=== PATIENT | male | born 1970 | race African-American/Black ===

== ENCOUNTER 2020-04-09 20:26 | Inpatient (IN) | payer BC, OTHER ==
[2020-04-09 20:37] VITALS: BMI 33.8
[2020-04-09] MEDS ORDERED: ACETAMINOPHEN 1000 MG/100 ML VIAL (NON FORMULARY) IVPB ONE (21:39)
[2020-04-09] MEDS ORDERED: SODIUM CHLORIDE 1,000 ML IV SCH (21:45)
[2020-04-09] MEDS ORDERED: ACETAMINOPHEN INJECTION 100 ML IVPB ONE (21:54)
[2020-04-09] MEDS ORDERED: ONDANSETRON 4 MG/2 ML VIAL IVPUSH ONE (22:21)
[2020-04-09] MEDS ORDERED: KETOROLAC TROMETHAMINE 15 MG/ML VIAL IVPUSH ONE (22:39)
[2020-04-09] MEDS ORDERED: KETOROLAC TROMETHAMINE 15 MG/ML VIAL ONE ×2 (22:42→22:45)
[2020-04-09] MEDS ORDERED: ONDANSETRON 4 MG/2 ML VIAL ONE (22:42)
[2020-04-09 22:50] LABS: BASO % 1.2 % (0-2.0); EOS % 6.5 % (0-4.5); HEMATOCRIT 38.1 % (35.4-49); HEMOGLOBIN 12.4 GM/dL (11.7-16.9); LYMPH % 33.9 % (8-40); MCHC 32.6 g/dl (32.0-35.9); MEAN CELL VOLUME 79.8 fl (80-96); MEAN PLT VOLUME 9.2 fl (7.5-11.1); MONO % 8.1 % (3.8-10.2); NEUT % 50.3 % (42.8-82.8); PLATELET COUNT 306 K/MM3 (134-434); RBC 4.78 M/mm3 (4.00-5.60)
[2020-04-09 23:00] LABS: INR 1.25 (0.83-1.09); PROTHROMBIN TIME (PATIENT) 15.3 SEC (9.7-13.0)
[2020-04-09 23:03] LABS: ACTIVATED PTT 31.3 SECONDS (25.2-36.5)
[2020-04-09 23:04] LABS: URINE APPEARANCE CLEAR; URINE BILIRUBIN NEGATIVE (NEGATIVE); URINE COLOR YELLOW; URINE GLUCOSE (UA) NEGATIVE (NEGATIVE); URINE KETONE TRACE (NEGATIVE); URINE LEUK ESTERASE NEGATIVE (NEGATIVE); URINE NITRITE NEGATIVE (NEGATIVE); URINE PROTEIN TRACE (NEGATIVE); URINE UROBILINOGEN 0.2 mg/dL (0.2-1.0)
[2020-04-09 23:19] LABS: POTASSIUM 4.5 mmol/L (3.5-5.1)
[2020-04-09 23:22] LABS: CALCIUM 9.1 mg/dL (8.5-10.1)
[2020-04-09 23:23] LABS: ALBUMIN 3.8 g/dl (3.4-5.0); BLOOD UREA NITROGEN 20.1 mg/dL (7-18)
[2020-04-09 23:26] LABS: CREATININE 1.9 mg/dL (0.55-1.3)
[2020-04-09 23:27] LABS: BILIRUBIN,TOTAL 0.2 mg/dL (0.2-1); TOT PROT 7.9 g/dl (6.4-8.2)
[2020-04-10] MEDS ORDERED: TAMSULOSIN HCL 0.4 MG CAP PO ONE (00:14)
[2020-04-10] MEDS ORDERED: SODIUM CHLORIDE 0.9% 500 ML INFUS.BAG IV ONE (00:14)
[2020-04-10] MEDS ORDERED: TAMSULOSIN HCL 0.4 MG CAP ONE ×2 (00:25→09:39)
[2020-04-10] MEDS ORDERED: KETOROLAC TROMETHAMINE 15 MG/ML VIAL IVPUSH PRN (01:13)
[2020-04-10] MEDS ORDERED: MORPHINE SULFATE 2 MG/ML VIAL IM PRN (01:30)
[2020-04-10 06:54] LABS: BASO % 0.9 % (0-2.0); EOS % 7.2 % (0-4.5); HEMATOCRIT 38.3 % (35.4-49); HEMOGLOBIN 12.3 GM/dL (11.7-16.9); LYMPH % 37.7 % (8-40); MCH 25.8 pg (25.7-33.7); MEAN CELL VOLUME 80.7 fl (80-96); MEAN PLT VOLUME 9.1 fl (7.5-11.1); MONO % 7.7 % (3.8-10.2); NEUT % 46.5 % (42.8-82.8); PLATELET COUNT 263 K/MM3 (134-434); RBC 4.75 M/mm3 (4.00-5.60)
[2020-04-10 07:05] LABS: INR 1.22 (0.83-1.09); PROTHROMBIN TIME (PATIENT) 14.9 SEC (9.7-13.0)
[2020-04-10 07:06] LABS: ACTIVATED PTT 32.7 SECONDS (25.2-36.5)
[2020-04-10 07:19] LABS: POTASSIUM 4.5 mmol/L (3.5-5.1)
[2020-04-10 07:25] LABS: CALCIUM 8.4 mg/dL (8.5-10.1)
[2020-04-10 07:26] LABS: ALBUMIN 3.4 g/dl (3.4-5.0); BLOOD UREA NITROGEN 18.4 mg/dL (7-18); MAGNESIUM 2.5 mg/dL (1.8-2.4)
[2020-04-10 07:28] LABS: CREATININE 1.8 mg/dL (0.55-1.3); PHOSPHOROUS 3.6 mg/dL (2.5-4.9)
[2020-04-10 07:29] LABS: BILIRUBIN,TOTAL 0.2 mg/dL (0.2-1); TOT PROT 7.1 g/dl (6.4-8.2)
[2020-04-10] MEDS: TAMSULOSIN HCL 0.4 MG CAP PO SCH (09:40)
[2020-04-10] MEDS ORDERED: amLODIPine BESYLATE 5 MG TABLET (FP) PO SCH (12:15)
[2020-04-10] MEDS: SODIUM CHLORIDE 1,000 ML IV SCH (14:15)
[2020-04-10] MEDS ORDERED: HEPARIN NA (PORCINE) 5,000 UNITS/ML 1ML VIAL SQ SCH (22:00)
[2020-04-10] MEDS ORDERED: amLODIPine BESYLATE 5 MG TABLET (FP) PO ONE (22:29)
[2020-04-11] MEDS: SODIUM CHLORIDE 1,000 ML IV SCH ×2 (05:48→14:55)
[2020-04-11] MEDS ORDERED: amLODIPine BESYLATE 10 MG TABLET (FP) PO ONE (07:30)
[2020-04-11 07:31] LABS: HEMOGLOBIN 13.5 GM/dL (11.7-16.9); MCH 26.3 pg (25.7-33.7); MEAN CELL VOLUME 79.9 fl (80-96); MEAN PLT VOLUME 8.9 fl (7.5-11.1); PLATELET COUNT 331 K/MM3 (134-434); RBC 5.14 M/mm3 (4.00-5.60); WHITE BLOOD COUNT 4.2 K/mm3 (4.0-10.0)
[2020-04-11 08:00] LABS: POTASSIUM 4.5 mmol/L (3.5-5.1)
[2020-04-11 08:09] LABS: CALCIUM 9.2 mg/dL (8.5-10.1)
[2020-04-11 08:10] LABS: BLOOD UREA NITROGEN 14.4 mg/dL (7-18)
[2020-04-11 08:13] LABS: CREATININE 1.3 mg/dL (0.55-1.3)
[2020-04-11] MEDS: TAMSULOSIN HCL 0.4 MG CAP PO SCH (09:01)
[2020-04-11] MEDS ORDERED: DEXTROSE 5%-0.45% SALINE 1,000 ML IV SCH (14:45)
[2020-04-11 16:11] VITALS: BP 157/110; PULSE 76; TEMP 98.4
[2020-04-11] MEDS ORDERED: CHLORTHALIDONE 25 MG TABLET PO ONE (16:18)
[2020-04-12] MEDS ORDERED: amLODIPine BESYLATE 5 MG TABLET (FP) PO SCH (10:00)
== END 2020-04-11 18:21 | disposition home or self-care (01) | DRG 694 ==
LOC: JER 20:26 → JERBED 04-10 00:14 → J7W 04-10 10:32
PROVIDERS: ADMIT Internal Medicine; ATTEND Internal Medicine
DX: N13.2 Hydronephrosis with renal and ureteral calculous obstruction (principal); J98.11 Atelectasis; I10 Essential (primary) hypertension; N17.9 Acute kidney failure, unspecified; E66.9 Obesity, unspecified; Z68.33 Body mass index [BMI] 33.0-33.9, adult; I16.0 Hypertensive urgency; R94.31 Abnormal electrocardiogram [ECG] [EKG]
CPT/HCPCS: 36415; 71045-TC-FY; 74018-TC-FY; 74176-TC; 76775-TC; 80048; 80053; 81003; 83605; 83690; 83735; 84100; 85025; 85027; 85610; 85730; 87086; 93005; 93010; 99285-25; C9803; J0131; J1644; U0003

== ENCOUNTER 2021-10-14 12:40 | Emergency (ER) | payer BC, OTHER ==
[2021-10-14 12:45] VITALS: PULSE 80; RESP 20; TEMP 98.3; BMI 34.4
[2021-10-14] MEDS ORDERED: AMOXICILLIN 500 MG CAPSULE (FP) PO ONE (13:23)
[2021-10-14] MEDS ORDERED: KETOROLAC TROMETHAMINE 30 MG/1 ML VIAL IM ONE (13:23)
[2021-10-14] MEDS ORDERED: AMOXICILLIN 250 MG CAPSULE ONE (13:25)
[2021-10-14] MEDS ORDERED: KETOROLAC TROMETHAMINE 30 MG/1 ML VIAL ONE (13:25)
[2021-10-14 13:56] VITALS: BP 158/102
== END 2021-10-14 14:05 | disposition home or self-care (01) ==
LOC: JERFT 12:40
DX: R22.0 Localized swelling, mass and lump, head (principal)
CPT/HCPCS: 99283-25

== ENCOUNTER 2021-10-14 16:47 | Emergency (ER) | payer OTHER ==
[2021-10-14 17:10] VITALS: RESP 16; BMI 34.4
[2021-10-14] MEDS ORDERED: ASPIRIN 81 MG CHEWABLE TABLETS PO ONE (18:06)
[2021-10-14] MEDS ORDERED: HYDROCHLOROTHIAZIDE 12.5 MG CAPSULE (FP) PO ONE (18:08)
[2021-10-14] MEDS ORDERED: HYDROCHLOROTHIAZIDE 25 MG TABLET (FP) ONE (18:29)
[2021-10-14] MEDS ORDERED: ASPIRIN 81 MG CHEWABLE TABLETS ONE (18:29)
[2021-10-14 18:40] LABS: BASO % 1.1 % (0-2.0); EOS % 4.1 % (0-4.5); HEMATOCRIT 39.2 % (35.4-49); HEMOGLOBIN 12.8 GM/dL (11.7-16.9); MCH 25.8 pg (25.7-33.7); MCHC 32.6 g/dl (32.0-35.9); MEAN CELL VOLUME 79.1 fl (80-96); MONO % 6.6 % (3.8-10.2); NEUT % 67.2 % (42.8-82.8); PLATELET COUNT 231 10^3/uL (134-434); RBC 4.96 M/mm3 (4.00-5.60); RDW 14.3 % (11.9-15.9); WHITE BLOOD COUNT 4.9 K/mm3 (4.0-10.0)
[2021-10-14 18:47] LABS: INR 1.38 (0.83-1.09); PROTHROMBIN TIME (PATIENT) 15.9 SEC (9.7-13.0)
[2021-10-14 19:10] LABS: CALCIUM 9.2 mg/dL (8.5-10.1)
[2021-10-14 19:11] LABS: ALBUMIN 3.8 g/dl (3.4-5.0); BLOOD UREA NITROGEN 15.1 mg/dL (7-18)
[2021-10-14 19:14] LABS: CREATININE 1.1 mg/dL (0.55-1.3)
[2021-10-14 19:16] LABS: BILIRUBIN,TOTAL 0.3 mg/dL (0.2-1)
[2021-10-14 19:19] LABS: N-TERMINAL BNP 113.5 pg/ml (5-125)
[2021-10-14 20:51] VITALS: BP 186/100; PULSE 63; TEMP 98.4
[2021-10-14] MEDS ORDERED: amLODIPine BESYLATE 5 MG TABLET (FP) PO ONE (21:11)
[2021-10-14] MEDS ORDERED: amLODIPine BESYLATE 5 MG TABLET (FP) ONE (21:15)
== END 2021-10-14 21:23 | disposition home or self-care (01) ==
LOC: JER 16:47
PROC: 3E0233Z Introduction of Anti-inflammatory into Muscle, Percutaneous Approach (ICD-10-PCS; principal; 2021-10-14)
DX: R07.9 Chest pain, unspecified (principal)
CPT/HCPCS: 36415; 71046-TC-FY; 80053; 83880; 84484; 85025; 85610; 93005; 93010; 99284-25